=== PATIENT | female | born 1990 | race Caucasian/White ===

== ENCOUNTER → 2020-03-18 | Outpatient (CLI) | payer OTHER ==
--- NOTE | 2020-03-18 14:02 | RADIOLOGY REPORT (SQ) ---
EXAM DESCRIPTION: U/S NON OB PEL TV W/DOPPLER IMAGES COMPLETED DATE/TIME: 03/18/2020 8:52 am REASON FOR STUDY: PELVIC PAIN, CYST OF OVARY R10.2 PELVIC AND PERINEAL PAIN N83.209 UNSPECIFIED OV ANT CYST, UNSPECIFIED SIDE COMPARISON: None. TECHNIQUE: Dynamic and static grayscale images acquired of the pelvis via transvaginal approach and recorded on PACS. Additional selected color Doppler and spectral images recorded. LIMITATIONS: None. FINDINGS: UTERUS: Contour normal. No mass. ENDOMETRIAL STRIPE: No focal or generalized thickening. No masses. CERVIX: No nabothian cysts. RIGHT OVARY AND DOPPLER: Normal size. No worrisome masses. Normal arterial vascular flow without evid ence for torsion. LEFT OVARY AND DOPPLER: Normal size. No worrisome masses. Normal arterial vascular flow without evide nce for torsion. There is a small left ovarian cyst measured 1.3 x 1.1 x 1.1 cm. FREE FLUID: None noted. OTHER: No other significant finding. MEASUREMENTS: UTERUS: 9.8 x 5.4 x 5.1 cm. ENDOMETRIAL STRIPE: 4.8 mm. RIGHT OVARY: 2.9 x 2.5 x 2.3 cm. LEFT OVARY: 2.7 x 2.3 x 2.2 cm. IMPRESSION: Small left ovarian cyst measuring 1.3 x 1.1 x 1.1 cm. No other significant findings. TECHNICAL DOCUMENTATION: JOB ID: [id number] 2010 [employer]- All Rights Reserved Rev-10/05 Reading location - IP/workstation name: [email or web address]
== END ==
LOC: RAD 07:27
PROVIDERS: ATTEND Family Medicine
DX: N83.202 Unspecified ovarian cyst, left side (principal); R10.2 Pelvic and perineal pain
CPT/HCPCS: 76830; 93976